=== PATIENT | female | born 1995 | race African-American/Black ===

== ENCOUNTER 2017-09-30 21:17 | Emergency (ER) | payer OTHER ==
[~2017-09-30] VITALS: Ht 167.6 cm; Wt 65.8 kg
[2017-09-30 21:25] VITALS: Ht 167.6 cm; Wt 65.8 kg
[2017-09-30] MEDS ORDERED: IBUP-1542 PO (22:39)
[2017-09-30] MEDS ORDERED: SLF10OP15 BOTH EYES (22:39)
--- NOTE | 2017-09-30 23:32 | ERD ---
ER Documentation Chief Complaint Chief Complaint watery eyes (no redness noted) since thursday; L ankle pain x 3 days HPI Patient is a 22-year-old female with no medical problems who presents with eye redness. She said that on Thursday she started with bilateral eye redness and watery discharge. She tried Visine and Benadryl. She has left-sided ankle pain as well without trauma. She has not called her primary doctor as of yet. She said it hurts with walking. She wears glasses and has had no vision changes. She does not wear contacts. Her primary doctor is Dr. Robison. ROS All systems reviewed and are negative except as per history of present illness. Medications Home Meds Active Scripts Ibuprofen* (Motrin*) 600 Mg Tab, 600 MG PO Q6H Y for PAIN AND OR ELEVATED TEMP, #30 TAB Prov:THALIA HAJI MD 09/30/17 Sulfacetamide Sodium* (Sulfacetamide Sodium*) 10%-15 Ml Opht Drops, 1 DROP BOTH EYES Q2H for 7 Days, EA Prov:THALIA HAJI MD 09/30/17 Allergies Allergies: Coded Allergies: No Known Allergy (Unverified , 11/11/14) PMhx/Soc History of Surgery: Yes ( x 2) Anesthesia Reaction: No Hx Neurological Disorder: No Hx Respiratory Disorders: No Hx Cardiac Disorders: No Hx Psychiatric Problems: No Hx Miscellaneous Medical Probl: Yes (ANEMIA) Hx Alcohol Use: No Hx Substance Use: No Hx Tobacco Use: No Smoking Status: Never smoker FmHx Family History: No diabetes Physical Exam Vitals Vital Signs Date Time Temp Pulse Resp B/P Pulse Ox O2 Delivery O2 Flow Rate FiO2 09/30/17 21:25 97.7 80 20 113/59 96 Physical Exam Const: No acute distress Head: Atraumatic Eyes: Bilateral eye redness ENT: Normal External Ears, Nose and Mouth. Neck: Full range of motion..~ No meningismus. Resp: Clear to auscultation bilaterally Cardio: Regular rate and rhythm, no murmurs Abd: Soft, non tender, non distended. Normal bowel sounds Skin: No petechiae or rashes Back: No midline or flank tenderness Ext: No swelling or deformity of the left ankle Neur: Awake and alert Psych: Normal Mood and Affect Procedures/MDM Patient is a 22-year-old female who presents with what appears to be acute bilateral conjunctivitis which is likely viral. I will give her sulfacetamide eyedrops in case there is a bacterial component. The patient will be given a prescription for ibuprofen for pain. She can return for any worsening symptoms. The patient understands the plan and is okay for discharge at this time. Departure Diagnosis: Primary Impression: Ankle pain Chronicity: acute Laterality: left Qualified Code: M25.572 - Acute left ankle pain Additional Impression: Conjunctivitis Conjunctivitis type: acute Acute conjunctivitis type: unspecified Laterality: bilateral Qualified Code: H10.33 - Acute conjunctivitis of both eyes, unspecified acute conjunctivitis type Condition: Fair Patient Instructions: Conjunctivitis, Non-Specific Additional Instructions: Call your primary care doctor TOMORROW for an appointment during the next 1-2 days.See the doctor sooner or return here if your condition worsens before your appointment time. THALIA HAJI MD Sep 30, 2017 23:31
== END 2017-09-30 22:49 | disposition home or self-care (01) ==
LOC: FTE 21:17
DX: H10.33 Unspecified acute conjunctivitis, bilateral (principal); M25.572 Pain in left ankle and joints of left foot
CPT/HCPCS: 99283

== ENCOUNTER 2018-07-14 20:19 | Emergency (ER) | END 2018-07-14 23:40 | disposition home or self-care (01) ==

== ENCOUNTER 2018-10-02 15:27 | Emergency (ER) | END 2018-10-02 17:35 | disposition home or self-care (01) ==